=== PATIENT | male | born 1950 | race Two or more races ===

== ENCOUNTER 2019-06-11 15:28 | Inpatient (IN) | payer OTHER ==
[~2019-06-11] VITALS: Ht 170.2 cm; Wt 189.0 kg
[2019-06-24] MEDS ORDERED: METOPROLOL SUCC25 MG (10:07)
[2019-06-26] MEDS ORDERED: KEPPRA1000 MG PO (10:20)
[2019-06-26] MEDS ORDERED: FOSINOPRIL-HCT1 EAC1 PO (10:20)
[2019-06-26] MEDS ORDERED: SIMVASTATIN10 MG PO (10:21)
[2019-06-26] MEDS ORDERED: LATANOPROST2.5 ML OP (10:21)
[2019-06-26] MEDS ORDERED: LEVOTHYROXINE25 MCG PO (10:21)
[2019-06-26] MEDS ORDERED: ASA-EC81 MG PO (10:22)
[2019-06-26] MEDS ORDERED: CLONAZEPAM0.5 M1 PO (10:22)
[2019-06-26] MEDS ORDERED: DEPAKOTE ER500 MG PO (10:23)
[2019-06-26] MEDS ORDERED: REQUIP3 MG PO (10:23)
== END 2019-07-03 18:09 | DRG 470 ==
LOC: SURG 06-24 07:30 → EDBD 06-30 07:30 → SURG 06-30 07:30 → O/R 06-30 08:32 → SURH 06-30 08:32 → SURG 06-30 15:06 → SURH 06-30 17:39
PROVIDERS: ADMIT Orthopaedic Surgery
PROC: 0SRD0J9 Replacement of Left Knee Joint with Synthetic Substitute, Cemented, Open Approach (ICD-10-PCS; principal; 2019-06-30 07:00)
DX: M17.12 Unilateral primary osteoarthritis, left knee (principal); D62 Acute posthemorrhagic anemia; E03.8 Other specified hypothyroidism; I10 Essential (primary) hypertension; M65.88 Other synovitis and tenosynovitis, other site